=== PATIENT | male | born 1970 ===

== ENCOUNTER 2017-09-13 09:43 | Emergency (ER) | payer OTHER ==
[2017-09-13 09:48] VITALS: BP 128/84; PULSE 80; TEMP 97; O2SAT 97; BMI 28.6
[2017-09-13] MEDS ORDERED: Lidocaine 1% Inj (20ml) IJ ONE (10:53)
--- NOTE | 2017-09-13 10:55 | ED PDOC ---
HPI: Skin/Bite Injury Time Seen by Provider: 09/13/17 10:20 Chief Complaint (Nursing): Abnormal Skin Integrity Additional Complaint(s): 47 yo M reports 4 days of generalized itchiness with intermittent rash scattered in different parts of his body. 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 Otherwise patient reports (-) fever, (-) URI symptoms, (-) throat swelling, (-) tongue / lip swelling, (-) dyspnea, (-) cough, (-) wheezing, (-) abdominal pain, (-) nausea ( -) vomiting. There has been no exposure to known allergens. The patient reports taking no new medications, new food, changing soaps and lotions. Reports not taking any medications for his symptoms. Patient also reports of pain, redness, swelling to the R 4th distal digit, denies any trauma, injury, numbness or decrease in ROM. Past Medical History Vital Signs: Last Vital Signs Temp 97 F L 09/13/17 09:47 Pulse 80 09/13/17 09:47 Resp BP 128/84 09/13/17 09:47 Pulse Ox 97 09/13/17 11:27 - Medical History PMH: Diverticulitis, Kidney Stones - Family History Family History: States: Unknown Family Hx - Immunization History Hx Tetanus Toxoid Vaccination: Yes (UTD) Hx Influenza Vaccination: No Hx Pneumococcal Vaccination: No - Home Medications Home Medications: Ambulatory Orders Medication Instructions Recorded Famotidine [Pepcid] 1 tab PO BID #10 tab 01/01/15 Ciprofloxacin HCl [Cipro] 500 mg PO BID #20 tab 06/11/15 Metronidazole [Flagyl] 500 mg PO TID #30 tab 06/11/15 Acetaminophen with Codeine 1 tab PO Q6H PRN #10 tab 07/25/15 [Tylenol with Codeine No. 3 300 mg-30 mg] Cephalexin [Keflex] 500 mg PO Q6 #28 capsule 09/13/17 Cetirizine HCl [Zyrtec] 10 mg PO DAILY #30 capsule 09/13/17 Hydrocortisone Jenny 0.2% Cr 1 ea TP BID #15 tube 09/13/17 [Westcort] - Allergies Allergies/Adverse Reactions: Allergies Allergy/AdvReac Type Severity Reaction Status Date / Time ibuprofen Allergy RASH Verified 07/25/15 08:25 Review of Systems Constitutional: Negative for: Fever, Chills, Malaise ENT: Negative for: Nose Discharge, Throat Pain, Throat Swelling Cardiovascular: Negative for: Chest Pain, Palpitations Respiratory: Negative for: Cough, Shortness of Breath Gastrointestinal: Negative for: Vomiting, Diarrhea Skin: Positive for: Rash Physical Exam - Physical Exam Comments: GENERAL APPEARANCE: Patient is awake, alert, oriented x3 in no acute distress. SKIN: (+) rash to the posterior neck, RLL of the abdomen, b/l ankles, (-) excoriations, (-) drainage, (-) crusting of lesions is present. HENT: (-) conjunctival injection, (-) chemosis. Oropharynx: clear (-) tongue or lip swelling, (-) tonsillar exudates, (-) erythema. Airway: patent (-) stridor, (-) hoarseness. Mucous membranes moist. Nares: Patent (-) rhinorrhea. NECK: (-) lymphadenopathy, (-) tenderness. CARDIOVASCULAR: Normal rate and rhythm, (-) murmur, (-) gallop. CHEST: (-) rales, (-) wheezing, (-) dyspnea, (-) stridor. Breath sounds equal bilaterally. ABDOMEN: Soft. (-) tenderness, (-) distention, (-) HSN. EXTREMITIES: (+) erythema, edema, tenderness to the distal dorsal R 4th digit proximal to the nail. NEURO: Mental status: Patient is alert, oriented, and with normal strength and tone. - ECG O2 Sat by Pulse Oximetry: 97 Medical Decision Making Medical Decision Making: Impression : rash, consider allergic reaction, paronychia Plan : - I&D of paronychia I&D of paronychia performed by YASEMIN. Patient tolerated the procedure well. Patient instructed to follow-up with the clinic in 1-2 days without fail for wound check and for allergy testing. Advised to take medication as prescribed. Return to the emergency room at any time for any new or worsening symptoms. Patient states he fully agrees with and understands discharge instructions. States that he agrees with the plan and disposition. Verbalized and repeated discharge instructions and plan. I have given the patient opportunity to ask any additional questions. Disposition - Clinical Impression Clinical Impression: Rash, Paronychia of finger - Patient ED Disposition Is Patient to be Admitted: No Counseled Patient/Family Regarding: Diagnosis, Need For Followup, Rx Given - Disposition Referrals: [facility] [Outside] Disposition: Routine/Home Disposition Time: 11:00 Condition: STABLE Additional Instructions: Thank you for letting us take care of you today. You were treated for rash, paronychia. The emergency medical care you received today was directed at your acute symptoms. If you were prescribed any medication, please fill it and take as directed. It may take several days for your symptoms to resolve. Return to the Emergency Department if your symptoms worsen, do not improve, or if you have any other problems. Please call one of the physicians/clinics you have been referred to that are listed on the Patient Visit Information form that is included in your discharge packet. Bring any paperwork you were given at discharge with you along with any medications you are taking to your follow up visit. Our treatment cannot replace ongoing medical care by a primary care provider (PCP) outside of the emergency department. Thank you for allowing the [facility] team to be part of your care today. Prescriptions: Cephalexin [Keflex] 500 mg PO Q6 #28 capsule Cetirizine HCl [Zyrtec] 10 mg PO DAILY #30 capsule Hydrocortisone Jenny 0.2% Cr [Westcort] 1 ea TP BID #15 tube Instructions: Paronychia, Skin Rash (DC) Forms: [employer] (Faroese) Print Language: URDU - PA / TOBACCO PREVENTION HEALTH EDUCATOR / Resident Statement MD/DO has reviewed & agrees with the documentation as recorded. Procedures - Incision and Drainage Site: right 4th distal digit Blade Size: 11 I & D Procedure: betadine prep, sterile dressing applied Progress: I&D produced small amount of purulent material performed by PA. Clean dressing applied. Patient tolerated the procedure well.
[2017-09-13] MEDS ORDERED: Lidocaine Hydrochloride 1% 10 ML ONE (11:53)
== END 2017-09-13 12:39 | disposition home or self-care (01) ==
LOC: H.ER 09:43
DX: R21 Rash and other nonspecific skin eruption (principal); L03.012 Cellulitis of left finger

== ENCOUNTER 2017-09-21 01:22 | Emergency (ER) | payer OTHER ==
[2017-09-21 01:22] VITALS: BMI 28.6
[2017-09-21 01:42] VITALS: O2SAT 96
--- NOTE | 2017-09-21 04:17 | ED PDOC ---
HPI: Allergic Reaction Time Seen by Provider: 09/21/17 02:10 Chief Complaint (Nursing): Abnormal Skin Integrity History Per: Patient History/Exam Limitations: no limitations Onset/Duration Of Symptoms: Days Associated Symptoms: Skin Rash Additional Complaint(s): Patient has allergy to ibuprofen, took advil 2 days ago and developed rash, preventing him from sleeping. Denies respiratory difficulty or shortness of breath. No fevers, chills, headache, chest pain, nor shortness of breath. Past Medical History Reviewed: Historical Data, Nursing Documentation, Vital Signs Vital Signs: Last Vital Signs Temp 98.0 F 09/21/17 01:38 Pulse 84 09/21/17 01:38 Resp 18 09/21/17 01:38 BP 132/84 09/21/17 01:38 Pulse Ox 96 09/21/17 01:38 - Medical History PMH: Diverticulitis, Kidney Stones - Family History Family History: States: Unknown Family Hx - Immunization History Hx Tetanus Toxoid Vaccination: Yes (UTD) Hx Influenza Vaccination: No Hx Pneumococcal Vaccination: No - Home Medications Home Medications: Ambulatory Orders Medication Instructions Recorded Famotidine [Pepcid] 1 tab PO BID #10 tab 01/01/15 Ciprofloxacin HCl [Cipro] 500 mg PO BID #20 tab 06/11/15 Metronidazole [Flagyl] 500 mg PO TID #30 tab 06/11/15 Acetaminophen with Codeine 1 tab PO Q6H PRN #10 tab 07/25/15 [Tylenol with Codeine No. 3 300 mg-30 mg] Cephalexin [Keflex] 500 mg PO Q6 #28 capsule 09/13/17 Cetirizine HCl [Zyrtec] 10 mg PO DAILY #30 capsule 09/13/17 Hydrocortisone Jenny 0.2% Cr 1 ea TP BID #15 tube 09/13/17 [Westcort] Acetaminophen [Pain Reliever] 500 mg PO Q4 #30 tablet 09/21/17 DiphenhydrAMINE [Benadryl] 50 mg PO BID #30 cap 09/21/17 - Allergies Allergies/Adverse Reactions: Allergies Allergy/AdvReac Type Severity Reaction Status Date / Time ibuprofen Allergy RASH Verified 09/21/17 01:38 Review of Systems ROS Statement: Except As Marked, All Systems Reviewed And Found Negative Skin: Positive for: Rash Physical Exam - Reviewed Nursing Documentation Reviewed: Yes Vital Signs Reviewed: Yes - Physical Exam Appears: Positive for: Well, Non-toxic, No Acute Distress Head Exam: Positive for: ATRAUMATIC, NORMAL INSPECTION, NORMOCEPHALIC Skin: Positive for: Rash (Scattered urticaria on chest, arms, legs, ears) - ECG O2 Sat by Pulse Oximetry: 96 Pulse Ox Interpretation: Normal - Progress ED Course And Treament: Patient with mild allergic reaction, no respiratory involvement. Will treat with benadryl and re-eval. 0500 Significantly improved, adivsed patient to avoid NSAIDs in the future. return precautions discussed. Disposition - Clinical Impression Clinical Impression: Allergic reaction - Disposition Referrals: [facility] [Outside] Disposition Time: 05:00 Condition: STABLE Prescriptions: Acetaminophen [Pain Reliever] 500 mg PO Q4 #30 tablet DiphenhydrAMINE [Benadryl] 50 mg PO BID #30 cap Instructions: Drug Allergy Forms: [employer] (Albanian)
[2017-09-21 06:36] VITALS: BP 123/84; PULSE 83; RESP 16; TEMP 98.3
== END 2017-09-21 06:37 | disposition home or self-care (01) ==
LOC: H.ER 01:22
DX: T78.40XA Allergy, unspecified, initial encounter (principal)